=== PATIENT | female | born 1965 | race Caucasian/White ===

== ENCOUNTER 2016-11-09 09:50 | Outpatient (CLI) | payer OTHER ==
[2014-12-21 12:48] VITALS: O2SAT 98
== END 2016-11-09 09:51 | disposition home or self-care (01) ==
LOC: CONVCARE 09:50
PROVIDERS: ATTEND Orthopaedic Surgery
DX: M94.261 Chondromalacia, right knee (principal)
CPT/HCPCS: 73700

== ENCOUNTER 2017-01-18 09:25 | Outpatient (CLI) | payer OTHER ==
[2014-12-21 12:48] VITALS: O2SAT 98
== END 2017-01-18 09:26 | disposition home or self-care (01) | DRG 554 ==
LOC: CONVCARE 09:25
PROVIDERS: ATTEND Orthopaedic Surgery
DX: M17.11 Unilateral primary osteoarthritis, right knee (principal); M22.41 Chondromalacia patellae, right knee
CPT/HCPCS: 73564